=== PATIENT | male | born 1980 | race Caucasian/White ===

== ENCOUNTER 2018-09-02 07:15 | Day surgery (SDC) | payer OTHER ==
--- NOTE | 2018-09-02 08:51 | CP.SDSHP ---
Same Day Surgery H & P - History Proposed Procedure: EGD Pre-Op Diagnosis: heartburn. epigastric pain refractory to treatment - Previous Medical/Surgical History Comments: No PMH Previous Surgical History: Denies - Allergies Allergies: Allergies No Known Allergies Allergy (Verified 09/02/18 07:50) - Physical Exam Vital Signs: Vital Signs 09/02/18 09/02/18 07:40 07:51 Temperature 97.0 F L Pulse Rate 73 72 Respiratory 18 Rate Blood Pressure 116/77 O2 Sat by Pulse 100 Oximetry Mental Status: Alert & Oriented x3 Neuro: WNL Heart: WNL Lungs: WNL GI: WNL - Impression Impression: heartburn. epigastric pain Pt. Evaluated Today:Candidate for Anesthesia & Procedure: Yes - Date & Time Date: 09/02/18 Time: 08:51 Short Stay Discharge - Short Stay Discharge Admitting Diagnosis/Reason for Visit: EPIGASTRIC PAIN, HEART BURN Disposition: HOME/ ROUTINE
[2018-09-02] MEDS ORDERED: Lactated Ringer's 500 ML IV ONE (08:53)
[2018-09-02] MEDS ORDERED: Propofol 10 mg/ml Inj (20 ML) ONE ×2 (08:55→09:02)
[2018-09-02] MEDS ORDERED: Pantoprazole 40 mg EC Tab PO STA (09:03)
[2018-09-02 09:38] VITALS: TEMP 97.8; O2SAT 98
[2018-09-02 10:48] VITALS: BP 106/63; PULSE 73; RESP 16
== END 2018-09-02 10:20 | disposition home or self-care (01) ==
LOC: C.ENDO 07:15
PROVIDERS: ATTEND Internal Medicine Gastroenterology
DX: K26.3 Acute duodenal ulcer without hemorrhage or perforation (principal); K29.40 Chronic atrophic gastritis without bleeding; K21.9 Gastro-esophageal reflux disease without esophagitis; B96.81 Helicobacter pylori [H. pylori] as the cause of diseases classified elsewhere
CPT/HCPCS: 43239; 88305; 88312; 88342; J2704; J7120